=== PATIENT | female | born 1960 | race Caucasian/White ===

== ENCOUNTER 2023-08-31 09:00 | Day surgery (SDC) | payer OTHER, SELFPAY ==
[2023-08-14 12:45] VITALS: BMI 30.2
[2023-08-14 13:24] LABS: % Basophils 0.3 % (0-2); % Immature Granulocytes 0.3 % (0-0.5); % Lymphocytes 36.6 % (20.5-51.1); % Monocytes 10.3 % (1.7-9.3); % Neutrophils 50.5 % (42.2-75.2); Absolute Eosinophils 0.2 10^3/uL (0-0.7); Absolute Lymphocytes 2.9 10^3/uL (1.2-3.4); Absolute Monocytes 0.8 10^3/uL (0.1-0.6); Hematocrit 46.9 % (37.0-47.0); Mean Corp Hgb Conc. 34.1 g/dL (33.0-37.0); Mean Corpuscular Hgb 32.6 pg (27.0-31.0); Mean Corpuscular Volume 95.5 fL (81.0-99.0); Mean Platelet Volume 9.5 fL (7.4-10.4); Nucleated Red Blood Cells % 0 %; Platelet Count 227 10^3/uL (130-400); Red Blood Cell Count 4.91 10^6/uL (4.20-5.40); Red Cell Dist. Width 12.8 % (11.5-14.5)
[2023-08-14 13:32] LABS: ALT (SGPT) 76 U/L (0-35); AST (SGOT) 57 U/L (14-36); Alkaline Phosphatase 80 U/L (38-126); Blood Urea Nitrogen 10 mg/dl (7-17); Calcium 9.4 mg/dl (8.4-10.2); Carbon Dioxide 31 mmol/L (22-30); Chloride 102 mmol/L (98-107); Estimated Creatinine Clearance 99 ml/min; Glucose 107 mg/dl (70-99); Magnesium 1.8 mg/dl (1.6-2.3); Potassium 3.5 mmol/L (3.5-5.1); Sodium 139 mmol/L (135-145); Total Bilirubin 0.8 mg/dl (0.2-1.3); Total Protein 8.4 g/dl (6.3-8.2); eGFR > 60.00
--- NOTE | 2023-08-14 13:48 | SLEEP.APNEA ---
Sleep Apnea Order
-
Patient screened as High Risk for Sleep Apnea on Stop Bang Questionnaire. Patient referred to [facility] for Pre-Study.

Name: RENAY SANCHES
: 1960
Home Phone: Use [email or web address] instead
Cell Phone: [f_Reg Other Phone]
Work Phone:
Address: [address] [place] [address]
City: [place]
State: [place]
Zip: [f_[facility] Zip]
Family Physician: Ricky Butler
Height 5 ft 8 in
Actual Weight 90.1 kg
Body Mass Index (BMI) 30.2
Ordering Provider: Helen Greco
[2023-08-31] VITALS (9 sets, daily range): BP systolic 64–123; BP diastolic 52–87; BMI 29.3
[2023-08-31 10:03] LABS: Glucose - Point of Care 112 mg/dl (70-99)
--- NOTE | 2023-08-31 10:46 | ITS.CL.ABL ---
Health Care Coach - Ablation
Ablation
Procedure Report:
Primary Institutional Research Director: Chris Barragan DO
Procedure Date: 08/31/2023
Patient History:
Patient is a pleasant 62-year-old female with a past medical history significant for hypercholesterolemia, diabetes mellitus type 2, sleep apnea, tobacco use disorder, and paroxysmal symptomatic atrial fibrillation.
See H&P for complete details.
Indication:
Symptomatic paroxysmal atrial fibrillation
Breakthrough atrial fibrillation on sotalol
Arrhythmia Specific History:
Prior Medical Therapies for Rate and Rhythm Control:
X Beta-rick
[ ] Calcium channel-rick
[ ] Amiodarone
[ ] Dronederone
X Sotalol
[ ] Flecainide
[ ] Dofetilide
[ ] Options limited by bradycardia
[ ] Options limited by comorbid renal disease
Prior Procedural Therapies for AF/AFL:
[ ] Cardioversion
[ ] Pulmonary Vein Isolation
[ ] Posterior Wall Isolation
[ ] Additional lines (Specify)
[ ] Surgical Rudolph-MAZE or PVI (Specify)
Procedure Performed:
X AF ablation procedure (29357) -- includes LA/CS pacing, trans-septal, 3D mapping, + ICE
[ ] +IV drug (52877)
[ ] +Other Arrhythmia (00124)
[ ] +Other AF Line/ablation (34080)
Risks and expected recovery has been explained in detail. Alternative options have been explored, and in a shared-decision making fashion we have decided that this was the most appropriate procedure.
Method
NPO status confirmed. Grounding pad applied. Defibrillator pads applied. Continuous surface ECG, pulse oximetry, and blood pressure were monitored. Procedure was performed under general anesthesia, with anesthesia services.
Both groins were clipped, prepped with Chloraprep, and draped in sterile fashion. Time out was called. Local anesthesia administered with bupivacaine. The right and left femoral veins were accessed for catheter placement, using ultrasound guidance,
micro-puncture needle/wire, and modified seldinger technique. 3 sheaths were placed. The following catheters were used:
[ ] Tacticath SE (D/F Curve) ablation catheter
X Viewflex 9Fr ICE catheter
X Inquiry decapolar 6Fr diagnostic catheter
[ ] CRD Hex 6Fr
[ ] Arctic Front Advance Cryoballoon ([ ]28mm[ ]23mm)
[ ] Achieve Advance mapping catheter ([ ]15mm[ ]20mm)
X FlexCath Contour 10 Fr with PulseSelect PFA Catheter
X Advisor HD Grid Mapping Catheter, SE
[ ] Acuson AcuNav 8 Fr ICE catheter
[ ]Other: [ ]
Intracardiac ultrasound (ICE) was carefully advanced into the right atrium to guide sheath placement over a J-wire, catheter placement, guide trans-septal puncture, identify potential complications, identify anatomic structures and ensure proper
contact between ablation catheter and tissue.
Heparin was given prior to trans-septal puncture. Heparin was given to achieve and maintain a target ACT of 300-400 seconds throughout the procedure.
Trans-septal access was performed under ICE guidance. The trans-septal puncture was performed with a SafeSept wire through a Brockenbrough needle assembly through the steerable sheath. The wire was visualized as it entered the LSPV and system
advanced under ICE guidance and fluoroscopy into the LA. The Brockenbrough needle assembly, SafeSept wire and sheath dilator were removed under negative pressure. LA pressure was measured and recorded.
ICE and 3D mapping was performed to identify relevant cardiac structures. A careful 3D map was created to assess for regions of low-voltage and abnormal electrogram signals using HD grid mapping catheter and PulseSelect catheter. Additional mapping
was performed as outlined below.
Prior to ablation, glycopyrrolate was provided. PulseSelect catheter was advanced over J-wire to the ostium of each vein. Pulmonary vein isolation was performed with ostial and antral lesions in a circumferential manner. Contact was visualized via
EAM, ICE, fluoroscopy, and EGM signals. Following completion of ablation lesions, a post-ablation voltage/activation map was performed in sinus rhythm. Entrance and exit block were confirmed for each vein.
Catheter and sheath were removed from the left atrium and post-ablation intracardiac echo evaluation was consistent with pre-ablation with no changes and no pericardial effusion and there is no left atrial thrombus or left ventricle thrombus seen.
Electrophysiology study was performed. Hemostasis was obtained with Vascade for each sheath and with manual pressure. Protamine was used for reversal.
Estimated Blood Loss
5-10 mL
Complications
None
Fluoroscopy: 12.7 minutes; 45.2 mGy; DAP 4.73
Baseline Intervals:
Rhythm: SR
WY: 167 ms
QRS: 95 ms
QT: 432 ms
QTc: 488 ms
A-A: 784 ms
R-R: 784 ms
Post-Procedure Intervals:
WY: 177 ms
QRS: 88 ms
QT: 411 ms
QTc: 462 ms
A-A: 790 ms
R-R: 790 ms
AVWB: 330 ms
AVNERP: 600/250 ms
Recommendations
- Bedrest with straight-leg precautions as ordered
- Anticipate same day discharge if patient meeting clinical metrics
- Resume home medications as indicated
- Ok to resume anticoagulation tonight if patient and groin sites stable
- PPI daily for 30 days
- Plan for follow-up in office with Dr. Barragan
� Continue sotalol for 3 months post procedure and can consider reduction/discontinuation at that time
Arik Jo DO
Clinical Cardiac Club Attendant
cc: Chris Barragan, DO; Ricky Butler, DO
[2023-08-31 11:40] LABS: ACT-LR - POC 298 Seconds (116-155)
[2023-08-31 12:06] LABS: ACT-LR - POC 368 Seconds (116-155)
[2023-08-31 12:36] LABS: ACT-LR - POC 366 Seconds (116-155)
[2023-08-31 13:01] LABS: ACT-LR - POC 374 Seconds (116-155)
[2023-08-31 13:31] LABS: ACT-LR - POC 145 Seconds (116-155)
--- NOTE | 2023-08-31 15:59 | W.PN.UPDATE ---
Update Note
Progress Note Update
62 yo WF s/p PVI PFA (same day). She feels good, no cp, sob, samuel diet, voiding, amb w/o dizziness. b/l groins c/d/i VASCADE closure. EKG SR no ectopy. She will continue OAC Eliquis at 8pm at home. She will continue sotalol and take PPI daily for 30
days. Activity restrictions reviewed. She will f/u Dr. Barragan in 2 mo. She is for d/c home after 430p.
Patient History:
Patient is a pleasant 62-year-old female with a past medical history significant for hypercholesterolemia, diabetes mellitus type 2, sleep apnea, tobacco use disorder, and paroxysmal symptomatic atrial fibrillation.
See H&P for complete details.
Indication:
Symptomatic paroxysmal atrial fibrillation
Breakthrough atrial fibrillation on sotalol
Arrhythmia Specific History:
Prior Medical Therapies for Rate and Rhythm Control:
== END 2023-08-31 16:29 | disposition home or self-care (01) ==
LOC: CATH 09:00
PROVIDERS: ATTENDING PHYSICIAN Internal Medicine Cardiovascular Disease; FAMILY PHYSICIAN Internal Medicine; OTHER PHYSICIAN Internal Medicine Cardiovascular Disease
DX: I48.0 Paroxysmal atrial fibrillation (principal); R42 Dizziness and giddiness; R00.2 Palpitations; R06.02 Shortness of breath; E11.9 Type 2 diabetes mellitus without complications; Z79.84 Long term (current) use of oral hypoglycemic drugs; G47.33 Obstructive sleep apnea (adult) (pediatric); Z72.0 Tobacco use; I10 Essential (primary) hypertension; E66.9 Obesity, unspecified; Z68.30 Body mass index [BMI] 30.0-30.9, adult; K21.9 Gastro-esophageal reflux disease without esophagitis; Z88.5 Allergy status to narcotic agent; E78.00 Pure hypercholesterolemia, unspecified; Z90.49 Acquired absence of other specified parts of digestive tract; Z79.01 Long term (current) use of anticoagulants; Z79.899 Other long term (current) drug therapy
CPT/HCPCS: C1732; C1894; C1769; C1892; C1759; 36415; 75572; 76937; 80053; 82962; 83735; 85025; 85347; 85610; 86850; 86900; 86901; 93005; 93656; C1760; Q9967